=== PATIENT | female | born 1985 | race Caucasian/White ===

== ENCOUNTER 2024-04-18 21:07 | Day surgery (SDC) | payer OTHER, SELFPAY ==
[2024-04-18] VITALS (10 sets, daily range): BP systolic 141–172; BP diastolic 91–117; BMI 38.0
--- NOTE | 2024-04-18 11:21 | ED.GENMED ---
History of Present Illness
General
Chief Complaint: Abdominal Pain
Time Seen by Provider: 04/18/24 11:07
History of Present Illness
History of Present Illness:
38-year-old female presents the emergency department for evaluation of abdominal pain. She reports generalized pain that is nonfocal, worse with walking or when riding in the car. It began suddenly yesterday but has not worsened dramatically in
the subsequent day. No fevers or chills. Denies any dysuria or hematuria. No nausea, vomiting, or diarrhea no history of abdominal surgeries
Review of Systems
Review of Systems
Allergies reviewed?: Yes
All Other Systems: ROS reviewed and negative except as documented in HPI and ROS
Phy Exam
Physical Exam
Physical Exam:
GEN: Well appearing, NAD, WDWN
Eyes: PERRLA, EOMs intact, no scleral icterus
HENT: NCAT, oral mucosa moist
Lungs: CTAB, no wheezes, rales, rhonchi, normal chest wall excursion
Cardiac: RRR, no M/R/G, no peripheral edema. Radial pulses 2+ bilat
Abdomen: Obesity limits exam however abdomen is soft and nonrigid, there is focal right lower quadrant as well as epigastric tenderness but no peritoneal signs
Neuro: AO x 3
MSK: No gross deformity or ecchymosis. No edema. No digital clubbing
Skin: No rashes, petechiae. Normal color, no pallor or jaundice.
Psych: Calm, cooperative, proper hygiene
Course
Orders/Labs/Results
Orders:
Orders
04/18/24 10:48
Test Result ONCE
04/18/24 11:21
CT Abd/Pel (IV only)-DH only Urgent
Comment:
Reason For Exam: RLQ pain
04/18/24 11:45
Complete Blood Count/With Diff Urgent
Comprehensive Metabolic Panel Urgent
HCG, Serum Qualitative Screen Urgent
Comment: Notify provider if positive test present
Lipase Urgent
04/18/24 11:46
Urinalysis Reflex To Culture Urgent
Date Specimen was Collected: 04/18/24
Time Specimen was Collected: 10:48
Urine Microscopic Reflex Cult Urgent
Urine Culture Urgent
FAHEEM Source: U
Specimen Description:
Date Specimen was Collected: 04/18/24
Time Specimen was Collected: 10:48
04/18/24 14:10
US Pelvis W Transvag Combined Urgent
Comment:
Reason For Exam: pelvic mass
04/18/24 14:28
CA 125 Urgent
CEA Urgent
Abnormal Lab Results
04/18/24 04/18/24
11:45 11:46
WBC 14.1 H 10^3/uL
(4.8-10.8)
MCV 80.7 L fL
(81.0-99.0)
RDW 14.8 H %
(11.5-14.5)
Plt Count 406 H 10^3/uL
(130-400)
Abs Immat Gran (auto) 0.1 H 10^3/uL
(0-0.05)
Absolute Neuts (auto) 12.2 H 10^3/uL
(1.4-6.5)
Neutrophils % 86.5 H %
(42.2-75.2)
Lymphocytes % 8.9 L %
(20.5-51.1)
Urine Ketones 3+ A
(Negative)
Ur Occult Blood Reflex Trace A
(Negative)
Urine Nitrite (Reflex) Positive A
(Negative)
Urine Bilirubin 2+ A
(Negative)
Urine Urobilinogen 2+ A
(Neg - 1+)
Leukocyte Esterase Rfl Trace A
(Negative)
Urine Bacteria (Reflex) Many A
(Negative)
04/18/24 11:45
07/17/24 11:45
Vital Signs
Initial and Last Documented VS:
Initial Vital Signs
Temp Pulse Resp BP Pulse Ox
97.4 F 113 18 158/117 100
04/18/24 10:45 04/18/24 10:45 04/18/24 10:45 04/18/24 10:45 04/18/24 10:45
Last Documented Vital Signs
Temp Pulse Resp BP Pulse Ox
97.4 F 101 16 141/92 100
04/18/24 10:45 04/18/24 16:37 04/18/24 16:37 04/18/24 17:00 04/18/24 18:15
MDM/Problems Addressed
MDM/Problems Addressed:
After initial CT scan evaluation the case was discussed with on-call LIBER[facility]S DEAN who requested a discussion with gynecology oncology given the size of the mass. I had a phone call with Dr. Luther and he requested we do a transvaginal ultrasound to further
quantify the mass and then ultimately discharged to outpatient follow-up. After ultrasound I again discussed the case with on-call LIBERAL [facility]S DEAN Dr. Fair who happily saw the patient in consultation in the emergency department. After consultation the
decision was made to take the patient for operative intervention due to pain for likely oophorectomy. Clinically this does not present as an ovarian torsion given well-controlled pain
*Critical Care Note
Total Time (30-74mins, 75-104mins- exclusive of procedures): Not Applicable
ED Attending Note
-
Portions of this chart may have been created with voice recognition software.� Occasional wrong word or��sound alike� substitutions may have occurred due to the inherent limitations of voice recognition software.
Discharge Plan
Departure
Patient Disposition: OR
Date of Disposition: 04/18/24
Time of Disposition: 18:44
Presentation/result/management discussed w/ accepting MD/DO: Jw
Patient with high blood pressure during this ER visit?: Yes
Discharge Problem:
Mass of ovary
Prescriptions:
No Action
Zepbound 7.5 mg/0.5 mL pen injector
7.5 mg SC CHARLES
Referrals:
Negra Fairchild DO [Active] - Call in 1-3 days for appt
Aguila Aguilera MD [Active] -
Activity Restrictions/Additional Instructions:
Your pain today may have been due to a hemorrhagic RIGHT ovarian cyst
However, you will need to follow up with [facility] DE[facility]-ONCOLOGY Dr Aguilera within the next week to determine a further plan of care
Interventions
Interventions:
*Risk Screen - Suicide Last Done: 04/18/24 10:47
*General Assessment Last Done: 04/18/24 10:47
*Neglect/Abuse Screening Last Done: 04/18/24 10:47
ED- Fall Risk Assessment Last Done: 04/18/24 11:46
*ED COVID-19 Vaccine History Last Done: 04/18/24 11:46
YK-Ibiihh-Efmxtchkjz Assessment Last Done: 04/18/24 11:46
Discharge Date and Time
Print Language: ESTONIAN
[2024-04-18 12:06] LABS: % Basophils 0.4 % (0-2); % Eosinophils 0.5 % (0-6); % Immature Granulocytes 0.4 % (0-0.5); % Lymphocytes 8.9 % (20.5-51.1); % Monocytes 3.3 % (1.7-9.3); % Neutrophils 86.5 % (42.2-75.2); Absolute Basophils 0.1 10^3/uL (0-0.2); Absolute Eosinophils 0.1 10^3/uL (0-0.7); Absolute Immature Granulocytes 0.1 10^3/uL (0-0.05); Absolute Lymphocytes 1.3 10^3/uL (1.2-3.4); Absolute Monocytes 0.5 10^3/uL (0.1-0.6); Absolute Neutrophils 12.2 10^3/uL (1.4-6.5); Hematocrit 41.3 % (37.0-47.0); Mean Corp Hgb Conc. 33.9 g/dL (33.0-37.0); Mean Corpuscular Hgb 27.3 pg (27.0-31.0); Mean Corpuscular Volume 80.7 fL (81.0-99.0); Mean Platelet Volume 9.6 fL (7.4-10.4); Nucleated Red Blood Cells % 0 %; Platelet Count 406 10^3/uL (130-400); Red Blood Cell Count 5.12 10^6/uL (4.20-5.40); Red Cell Dist. Width 14.8 % (11.5-14.5); White Blood Cell Count 14.1 10^3/uL (4.8-10.8)
[2024-04-18 12:11] LABS: HCG, Serum Qualitative Screen Negative
[2024-04-18 12:11] LABS: Urine Albumin Trace (Neg - Trace); Urine Bilirubin 2+ (Negative); Urine Character Slightly Cloudy (Clear); Urine Color Yellow; Urine Glucose Negative (Negative); Urine Ketone 3+ (Negative); Urine Leukocyte Trace (Negative); Urine Nitrite Positive (Negative); Urine Occult Blood Trace (Negative); Urine Specific Gravity 1.025 (<1.030); Urine Urobilinogen 2+ (Neg - 1+)
[2024-04-18 12:14] LABS: ALT (SGPT) 14 U/L (0-35); AST (SGOT) 18 U/L (14-36); Albumin 4.2 g/dl (3.5-5.0); Alkaline Phosphatase 64 U/L (38-126); Blood Urea Nitrogen 16 mg/dl (7-17); Calcium 9.4 mg/dl (8.4-10.2); Carbon Dioxide 25 mmol/L (22-30); Chloride 103 mmol/L (98-107); Estimated Creatinine Clearance 123 ml/min; Glucose 88 mg/dl (70-99); Lipase 88 U/L (23-300); Potassium 3.6 mmol/L (3.5-5.1); Sodium 136 mmol/L (135-145); Total Bilirubin 1.2 mg/dl (0.2-1.3); Total Protein 6.8 g/dl (6.3-8.2); eGFR > 60.00
[2024-04-18 14:49] LABS: Urine Bacteria Many (Negative); Urine Mucus Moderate; Urine Red Blood Cell 0-2 /HPF (0-2); Urine Squamous Cell >30 /LPF (Few); Urine Uric Acid Crystals Present; Urine White Cell 0-2 /HPF (0-5)
[2024-04-18] MEDS: TYLENOL 1000 MG PO (19:23)
--- NOTE | 2024-04-18 19:26 | W.SUR.PREOP ---
Pre-Operative Surgical Note
-
I have examined this patient prior to the performance of the scheduled procedure.
The patient's condition is unchanged from the time of the current History and
Physical and the patient is able to undergo the scheduled procedure.
H&P dictated- dictation # [id number]
Stephanie Fair DO
[2024-04-18] MEDS: BICITRA 30 ML PO (19:33)
[2024-04-18 19:38] LABS: Urine Albumin Negative (Neg - Trace); Urine Bilirubin Negative (Negative); Urine Character Clear (Clear); Urine Color Amber; Urine Glucose Negative (Negative); Urine Ketone 3+ (Negative); Urine Leukocyte Negative (Negative); Urine Nitrite Negative (Negative); Urine Occult Blood Negative (Negative); Urine Urobilinogen Negative (Neg - 1+)
[2024-04-18 22:14] LABS: Urine Albumin Trace (Neg - Trace); Urine Bilirubin Negative (Negative); Urine Character Clear (Clear); Urine Color Yellow; Urine Glucose Negative (Negative); Urine Ketone 3+ (Negative); Urine Leukocyte Negative (Negative); Urine Nitrite Negative (Negative); Urine Occult Blood 2+ (Negative); Urine Urobilinogen Negative (Neg - 1+)
[2024-04-18 22:24] LABS: Urine Hyaline Cast 0-2 /LPF (0-2); Urine White Cell 0-2 /HPF (0-5)
--- NOTE | 2024-04-18 23:57 | W.IMMPOSTOP ---
Surgical Immed Post Op Note
-
Primary Surgeon: Dia Fair,
Assisting Surgeon: n/a
Pre-op Diagnosis: pelvic mass (left ovarian); abdominal pain
Post-op Diagnosis: left ovarian endometrioma, with suspected rupture; right ovarian endometrioma; Pelvic adhesions; Severe Endometriosis; Fibroid uterus
Procedure Performed: EUA, dx/op laparoscopy, pelvic washings, left salpingooophorectomy, right ovarian cystectomy, lysis of adhesions
Anesthesia Type: GETA
Specimen / Cultures: cath urinalysis, pelvic washings, left ovarian cyst fluid, left ovary and tube, right ovarian cyst wall
Estimated Blood Loss: 300ml
Complications: none
Operative Findings: EUA revealed a pelvic mass in the midline, extending almost all the way up to the umbilicus, limited mobility, normal-appearing vagina and cervix;
Laparoscopy revealed a moderate amount of dark brown, thick peritoneal fluid upon entry, consistent with likely rupture of an endometrioma. Fluid seen up around the liver edge, and e/o endometriosis noted on the diaphragm. 18cm enlarged
Left ovary with large multi-loculated endometrioma, left ovary adhesed to the posterior uterus and left pelvic side wall. 1600ml dark brown fluid drained from the left ovarian mass. Left tube slightly dilated. Right ovary had a 2-3cm exophytic
endometrioma, which ruptured when inspecting the ovary with a blunt instrument-- A portion of the cyst wall was easily excised off the ovarian stroma. Right ovary otherwise appeared normal. Right fallopian tube mildly dilated; uterus about 8wk size
with two anterior 3-4cm subserosal fibroids noted; Catheter sample of urine sent for u/a due to possible UTI on ER clean catch specimen-- resulted without suspected UTI.
Op note Dictation #[id number]
[2024-04-18] MEDS: LR 1000 IV (23:59)
[2024-04-19] VITALS: BP 148/98
[2024-04-19] MEDS: TORADOL 15 MG IV ×2 (00:01→05:49)
[2024-04-19 00:15] VITALS: BP 162/98
--- NOTE | 2024-04-19 00:39 | PTCARENOTE ---
00:08 pt received from PACU, aaox3, LR infusing via R ac at 125ml/hr, vs WNL for pt , education regrading elevated bp (162/98). Pt denies pain, voided 200cc, oriented to unit.
[2024-04-19 00:45] VITALS: BP 130/83
[2024-04-19] MEDS: ZOFRAN 4 MG IV (00:47)
[2024-04-19 01:00] VITALS: BP 138/90
[2024-04-19 03:48] VITALS: BP 133/89
[2024-04-19 04:48] LABS: Hematocrit 37.2 % (37.0-47.0); Hemoglobin 12.3 g/dL (12.0-16.0); Mean Corp Hgb Conc. 33.1 g/dL (33.0-37.0); Mean Corpuscular Hgb 26.3 pg (27.0-31.0); Mean Corpuscular Volume 79.7 fL (81.0-99.0); Mean Platelet Volume 9.7 fL (7.4-10.4); Platelet Count 424 10^3/uL (130-400); Red Blood Cell Count 4.67 10^6/uL (4.20-5.40); Red Cell Dist. Width 14.9 % (11.5-14.5); White Blood Cell Count 15.1 10^3/uL (4.8-10.8)
[2024-04-19 05:10] LABS: Carbon Dioxide 23 mmol/L (22-30); Chloride 103 mmol/L (98-107); Potassium 4.3 mmol/L (3.5-5.1); Sodium 137 mmol/L (135-145)
[2024-04-19 07:19] LABS: Estimated Creatinine Clearance > 125 ml/min
[2024-04-19 07:49] VITALS: BP 145/93
--- NOTE | 2024-04-19 07:59 | W.PN.GYN ---
Today's Communication / Plan
-
-Continue routine post-op care. Once pt voids, ambulates and tolerates PO may go home. RN in to assist pt to the restroom now
-D/c instructions given. Reviewed surgical findings, medications, f/u plan in 1-2wks with Dr. Fairchild, return precautions, wound care.
Physician Note
-
38yo G0 POD1 s/p dx/op laparoscopy, pelvic washings, LSO, right ovarian cystectomy for abdominal pain and ruptured large 18cm left ovarian endometrioma.
Pt has not yet ambulated or voided. Feels like she could void now. She is overall feeling well. Feels hungry, but hasn't eaten yet.
VSS
Gen: NAD, WD/WN
CV: RRR
Lungs: clear
Abd: soft, NTTP, ND
incisions c/d/i, dermabond covering
Extr: no calf TTP
See labs below
A/P POD1 s/p dx/op laparoscopy, pelvic washings, LSO, right ovarian cystectomy for abdominal pain and ruptured large 18cm left ovarian endometrioma.
-Continue routine post-op care. Once pt voids, ambulates and tolerates PO may go home. RN in to assist pt to the restroom now
-D/c instructions given. Reviewed surgical findings, medications, f/u plan in 1-2wks with Dr. Fairchild, return precautions, wound care.
Stephanie Fair, DO
Vital Signs / Labs
-
Vital Signs and Labs:
Temp Pulse Resp BP Pulse Ox
98.8 F 99 14 145/93 99
04/19/24 07:49 04/19/24 07:49 04/19/24 07:49 04/19/24 07:49 04/19/24 07:49
04/19/24 04:24
04/19/24 06:46
electrolytes wnl, creat 0.6
04/18/24 04/18/24 04/18/24
11:45 11:46 19:30
WBC 14.1 H
MCV 80.7 L
MCH
RDW 14.8 H
Plt Count 406 H
Abs Immat Gran (auto) 0.1 H
Absolute Neuts (auto) 12.2 H
Neutrophils % 86.5 H
Lymphocytes % 8.9 L
Urine Ketones 3+ A 3+ A
Urine Occult Blood
Ur Occult Blood Reflex Trace A
Urine Nitrite (Reflex) Positive A
Urine Bilirubin 2+ A
Urine Urobilinogen 2+ A
Leukocyte Esterase Rfl Trace A
Urine RBC
Urine Bacteria (Reflex) Many A
04/18/24 04/19/24
21:04 04:24
WBC 15.1 H
MCV 79.7 L
MCH 26.3 L
RDW 14.9 H
Plt Count 424 H
Abs Immat Gran (auto)
Absolute Neuts (auto)
Neutrophils %
Lymphocytes %
Urine Ketones 3+ A
Urine Occult Blood 2+ A
Ur Occult Blood Reflex
Urine Nitrite (Reflex)
Urine Bilirubin
Urine Urobilinogen
Leukocyte Esterase Rfl
Urine RBC 11-15 A
Urine Bacteria (Reflex)
--- NOTE | 2024-04-19 08:05 | W.DS.TRANS ---
DC Summary - Manager Strategy
-
Discharge Instructions:
Discharge Diagnosis/Procedures s/p dx/op laparoscopy/LSO/rt ovarian cystectomy/
pelvic washings/lysis of adhesions/Exam under
anesthesia; Endometriosis
Instructions:
Stand-Alone Forms: Same Day Services Discharge
Changes to Home Medications: No
Discharge Medications:
DC Medications w/original date entered in [facility]
ibuprofen 600 mg tablet 600 mg PO Q6H PRN pain #30 tabs 04/18/24
oxycodone 5 mg tablet 5 mg PO Q4H PRN severe pain #5 tabs 04/18/24
tirzepatide (weight loss) 7.5 mg/0.5 mL subcutaneous pen injector (Zepbound) 7.5 mg SC CHARLES 04/18/24
Home Medication Changes
no change to home meds
Pending Results: Yes
Additional Pending Results:
surgical pathology pending- this will be discussed at your post-op visit
Total time spent discharging patient (in min): 30
[2024-04-19] MEDS: COLACE 100 MG PO (08:34)
--- NOTE | 2024-04-19 09:32 | CM ---
Patient seen at bedside. Patient for discharge home today with mother coming to stay with her. Patient mother to transport and no VN needed at this time per patient. Patient with no PCP at this time, recently moved to [facility]. Patient uses the [facility] in
[place] [address]. 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 CM will continue to follow for discharge planning needs.
Plan; home with no needs
--- NOTE | 2024-04-19 10:03 | W.PN.UPDATE ---
Update Note
Progress Note Update
per Dr Fair, pt can be discharged.
[2024-04-19 19:16] LABS: CA 125 79.7 U/mL (0-35)
== END 2024-04-19 10:43 | disposition home or self-care (01) ==
LOC: SDS 21:07
PROVIDERS: Physician Assistant; ATTENDING PHYSICIAN Obstetrics & Gynecology; EMERGENCY PHYSICIAN Emergency Medicine
DX: N80.123 Deep endometriosis of bilateral ovaries (principal); N73.6 Female pelvic peritoneal adhesions (postinfective); R10.2 Pelvic and perineal pain
CPT/HCPCS: 58661; 58662; 88305; 74177; 76830; 76856; 80051; 80053; 81003; 81015; 82378; 82565; 83690; 84703; 85025; 85027; 86304; 86850; 86900; 86901; 87086; 88112; 99285; G0378; Q9967

== ENCOUNTER → 2024-09-17 08:17 | Outpatient (REF) | payer OTHER, SELFPAY | LOC: HWRAD 08:17 | PROVIDERS: ATTENDING PHYSICIAN Obstetrics & Gynecology; FAMILY PHYSICIAN Family Medicine | DX: N83.291 Other ovarian cyst, right side (principal) | CPT/HCPCS: 76830; 76856 ==